=== PATIENT | male | born 1975 | race Caucasian/White ===

== ENCOUNTER 2024-09-17 11:53 | Emergency (ER) | payer OTHER, SELFPAY ==
--- NOTE | ~2024-09-17 | CT_ITS ---
EXAMINATION: CT cervical spine wo con DATE: 09/17/2024 12:41 INDICATION: Cervical radiculopathy TECHNIQUE: Computed tomography (CT) of the cervical spine was performed without intravenous contrast. Automated exposure control and iterative reconstruction technique were employed. The dose-length pro duct was 203.67 mGy-cm. COMPARISON: None FINDINGS: Mild osteoarthritis at the atlantoaxial articulation. Alignment is normal. Vertebral body heights are normal. No fracture. Mild disc height loss at C5-C6. Mild emphysema in the upper lungs. Cervical sof t tissues are unremarkable. The following disc levels are specifically discussed: C2-C3: There is mild bilateral uncovertebral joint osteoarthritis. There is minimal bilateral facet joint osteoarthritis. There is no neural foraminal stenosis. There is no central canal stenosis. C3-C4: Small central disc protrusion. There is mild bilateral uncovertebral joint osteoarthritis. The re is mild bilateral facet joint osteoarthritis. There is minimal right neural foraminal stenosis. Th ere is minimal central canal stenosis. C4-C5: There is mild right uncovertebral joint osteoarthritis. There is mild bilateral, right greater than left, facet joint osteoarthritis. There is no neural foraminal stenosis. There is no central ca nal stenosis. C5-C6: Disc is bulging with suggestion of a right paracentral to subarticular zone disc extrusion. Th ere is mild bilateral uncovertebral joint osteoarthritis. There is mild bilateral facet joint osteoar thritis. There is no stenosis of the osseous neural foramina. There does however appear to be severe narrowing of the right lateral recess and significant narrowing of the right neural foramina resultin g from the disc extrusion although assessment is limited with noncontrast CT. There is moderate right -sided predominant central canal stenosis. C6-C7: There is no uncovertebral joint osteoarthritis. There is mild bilateral facet joint osteoarthr itis. There is no neural foraminal stenosis. There is no central canal stenosis. C7-T1: There is no uncovertebral joint osteoarthritis. There is mild left and mild to moderate right facet joint osteoarthritis. There is no neural foraminal stenosis. There is no central canal stenosis . IMPRESSION: 1. Mild cervical spondylosis most notable for what appears to be a prominent right paracentral to sub articular zone disc extrusion at C5-C6 resulting in significant stenosis of the right lateral recess and neural foramen at this level. Assessment is however limited on CT and would consider MRI for more definitive determination. Reviewed, dictated and finalized at location A. END HAND IMPRESSION: 1. Mild cervical spondylosis most notable for what appears to be a prominent ri ght paracentral to subarticular zone disc extrusion at C5-C6 resulting in signi ficant stenosis of the right lateral recess and neural foramen at this level. A ssessment is however limited on CT and would consider MRI for more definitive d etermination.
--- NOTE | ~2024-09-17 | XR_ITS ---
XR shoulder RT min 2V DATE: 09/17/2024 13:06 INDICATION: Posterior right shoulder pain after lifting injury TECHNIQUE: 5 views COMPARISON: None FINDINGS: There is suggestion of old healed fracture at the lateral aspect of the right clavicle. No recent fracture or dislocation is identified. Normal alignment at the right acromioclavicular and gle nohumeral joints. No abnormal right shoulder soft tissue calcification. IMPRESSION: No recent fracture or dislocation is detected Reviewed, dictated and finalized at location A. 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
[2024-09-17 11:57] VITALS: BP 121/87; PULSE 130; RESP 20; TEMP 36.9; O2SAT 100
[2024-09-17 12:13] VITALS: BP 130/84; PULSE 128; RESP 16; O2SAT 98
--- NOTE | 2024-09-17 12:23 | ED.UPPEXIN ---
HPI - Extremity Injury (Upper) General Chief Complaint: Extremity Injury, Upper Stated Complaint: Right Shoulder pain Time Seen by Provider: 09/17/24 12:12 Source: patient Mode of arrival: ambulatory Limitations: no limitations History of Present Illness HPI narrative: 49 years old white male came to the ED by private car complaining of right arm, right shoulder and right-sided neck pain started 3 weeks ago while trying to lift a bike. Pain has been steady, worse every now and then mainly with activities, better at rest. Patient reports some numbness of the arm above the elbow. He denies any fever, chills, nausea, vomiting, chest pain or back pain. Related Data Allergies Allergy/AdvReac Type Severity Reaction Status Date / Time No Known Allergies Allergy Verified 09/17/24 11:54 Review of Systems Review of Systems: All systems reviewed & are unremarkable except as noted in HPI and below Exam Narrative: GENERAL APPEARANCE: WELL-DEVELOPED, WELL-NOURISHED SKIN: NORMAL COLOR HEAD: NORMOCEPHALIC, NONTRAUMATIC EYES: CLEAR CONJUNCTIVA ENT: OROPHARYNX NORMAL, EARS NORMAL, NOSE NORMAL NECK: SUPPLE, NONTENDER CHEST AND RESPIRATORY: AIRWAY PATENT, NO RESPIRATORY DISTRESS, NO ACCESSORY MUSCLE USE HEART: REGULAR RATE/RHYTHM VASCULAR: NORMAL PERIPHERAL PULSES, NORMAL CAPILLARY REFILL. 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, NO GROSS MOTOR DEFICIT Course Vital Signs Vital signs: Vital Signs Temperature 36.9 C 09/17/24 11:57 Pulse Rate 130 H 09/17/24 11:57 Respiratory Rate 20 09/17/24 11:57 Blood Pressure 121/87 09/17/24 11:57 Pulse Oximetry 100 09/17/24 11:57 Oxygen Delivery Room Air 09/17/24 11:57 Temperature 36.6 C 09/17/24 13:32 Pulse Rate 126 H 09/17/24 13:32 Respiratory Rate 17 09/17/24 13:32 Blood Pressure 121/90 09/17/24 13:32 Pulse Oximetry 98 09/17/24 13:32 Oxygen Delivery Room Air 09/17/24 11:57 MDM - Extremity Injury (Upper) MDM Narrative Medical decision making narrative: RIGHT SHOULDER MUSCULOSKELETAL PAIN, CERVICAL RADICULOPATHY, ROTATOR CUFF INJURY SYNDROME RIGHT SHOULDER X-RAY SHOWED NO ACUTE OSSEOUS ABNORMALITY CT CERVICAL SPINE SHOWED ABNORMALITIES INDICATING POSSIBLE CERVICAL RADICULOPATHY. PATIENT PROBABLY NEED MRI FOR FURTHER EVALUATION. Differential Diagnosis Differential diagnosis: Likely other ( ABOVE) Imaging Data Radiologist's impression: Impressions Cervical Spine CT 09/17/24 12:57 IMPRESSION: 1. Mild cervical spondylosis most notable for what appears to be a prominent right paracentral to subarticular zone disc extrusion at C5-C6 resulting in significant stenosis of the right lateral recess and neural foramen at this level. Assessment is however limited on CT and would consider MRI for more definitive determination. Shoulder X-Ray 09/17/24 13:10 IMPRESSION: No recent fracture or dislocation is detected Critical Care Time Critical Care Time Critical Care Time: No Discharge Plan Discharge Clinical Impression: Cervical radiculopathy at C5 Patient Disposition: Home, Self-Care Condition: Stable Instructions: Cervical Radiculopathy (ED) Additional Instructions: Return if symptoms are worsening , call your family physician for appointment, take Tylenol as as needed for aches and pain, continue home medications. CONTACT HER FAMILY PHYSICIAN SOON POSSIBLE FOR POSSIBLE CERVICAL MRI TO RULE OUT THE POSSIBILITY OF PINCHED NERVE. Prescriptions: New dexamethasone 4 mg tablet 4 mg PO TID Qty: 15 0RF cyclobenzaprine 10 mg tablet 10 mg PO TID PRN (Reason: muscle spasm) Qty: 20 0RF Follow-up/Referrals: PHYSICIAN NOT ON STAFF,NONSTAFF [Non-Staff] - Venkatesh Perales MD [Physician] -
[2024-09-17] MEDS: IBUPROFEN 400 MG TABLET 800 MG PO (13:28)
[2024-09-17] MEDS: HYDROcodone/acetaminophen (*CRX) 5-325 MG TABLET 1 TAB PO (13:29)
[2024-09-17 13:32] VITALS: BP 121/90; PULSE 126; RESP 17; TEMP 36.6; O2SAT 98
== END 2024-09-17 13:35 | disposition home or self-care (01) ==
PROVIDERS: Emergency Provider Emergency Medicine
DX: M54.12 Radiculopathy, cervical region (principal)
CPT/HCPCS: 72125; 73030; 99284; A9270